=== PATIENT | female | born 1990 | race Caucasian/White ===

== ENCOUNTER 2018-07-20 10:51 | Emergency (ER) | payer OTHER ==
[2018-07-20] MEDS ORDERED: METHYLPREDNISOLONE INJ 125 MG/2 ML SDV IV ONE (11:41)
[2018-07-20] MEDS ORDERED: KETOROLAC TROMETHAMINE INJ/PF 30 MG/1 ML SDV IV ONE (11:41)
[2018-07-20] MEDS ORDERED: NORMAL SALINE 1000 ML 1,000 ML IV ONE (11:41)
[2018-07-20] MEDS ORDERED: NORMAL SALINE 1000 ML 1,000 ML IV PRN (11:41)
--- NOTE | 2018-07-20 11:42 | ER Document Report ---
ED Medical Screen (RME) - General Chief Complaint: Pain All Over Stated Complaint: FLU LIKE SYMPTOMS Time Seen by Provider: 07/20/18 11:39 Notes: 28 years old female with protein S deficiency, possible MS, presents today with general body aches and pain weakness feverish feeling wobbly legs, crying and generalized malaise. No fever chills. No sore throat earache. Not chest pain. No abdominal pain nausea vomiting. TRAVEL OUTSIDE OF THE [place] IN LAST 30 DAYS: No - Related Data Allergies/Adverse Reactions: No Known Allergies Allergy (Verified 07/20/18 10:58) Past Medical History Past Surgical History: Reports: Hx Appendectomy - Immunizations Hx Diphtheria, Pertussis, Tetanus Vaccination: No Physical Exam - Vital signs Vitals: Temp Pulse Resp BP Pulse Ox 98.6 F 87 16 102/58 L 98 07/20/18 11:01 07/20/18 11:01 07/20/18 11:01 07/20/18 11:01 07/20/18 11:01 Course - Vital Signs Vital signs: Temp Pulse Resp BP Pulse Ox 98.6 F 87 16 102/58 L 98 07/20/18 11:01 07/20/18 11:01 07/20/18 11:01 07/20/18 11:01 07/20/18 11:01
[2018-07-20 12:11] LABS: ABSOLUTE LYMPHOCYTES (AUTO) 0.3 10^3/uL (0.5-4.7); ABSOLUTE MONOCYTES (AUTO) 0.3 10^3/uL (0.1-1.4); ABSOLUTE NEUT (AUTO) 4.3 10^3/uL (1.7-8.2); BASOPHILS % (AUTO) 0.1 % (0-2); HEMATOCRIT 43.7 % (36.0-47.0); HEMOGLOBIN 15.4 g/dL (12.0-15.5); MEAN CORPUSCULAR HEMOGLOBIN 32.7 pg (27.0-33.4); MEAN CORPUSCULAR HGB CONC 35.2 g/dL (32.0-36.0); MEAN CORPUSCULAR VOLUME 93 fl (80-97); MONOCYTES % (AUTO) 6.3 % (3-13); PLATELET COUNT 220 10^3/uL (150-450); RED CELL DISTRIBUTION WIDTH 13.6 % (11.5-14.0); SEGMENTED NEUTROPHILS % (AUTO) 86.6 % (42-78); TOTAL CELLS COUNTED % (AUTO) 100 %
[2018-07-20 12:37] LABS: ALANINE AMINOTRANSFERASE 31 U/L (9-52); ALBUMIN 4.6 g/dL (3.5-5.0); ALKALINE PHOSPHATASE 45 U/L (38-126); ANION GAP 9 (5-19); ASPARTATE AMINO TRANSFERASE 26 U/L (14-36); BILIRUBIN,DIRECT 0.2 mg/dL (0.0-0.4); BILIRUBIN,TOTAL 0.7 mg/dL (0.2-1.3); BLOOD UREA NITROGEN 12 mg/dL (7-20); C-REACTIVE PROTEIN 53.7 mg/L (<10.0); CALCIUM 9.9 mg/dL (8.4-10.2); CARBON DIOXIDE 29 mmol/L (22-30); CHLORIDE 104 mmol/L (98-107); GLUCOSE 108 mg/dL (75-110); POTASSIUM 4.2 mmol/L (3.6-5.0); SODIUM 141.5 mmol/L (137-145); TOTAL PROTEIN 7.5 g/dL (6.3-8.2)
[2018-07-20 12:58] LABS: ERYTHROCYTE SEDIMENTATION RATE 8 mm/hr (0-20)
[2018-07-20] MEDS ORDERED: LORAZEPAM INJ 2 MG/1 ML VIAL IV ONE (13:47)
--- NOTE | 2018-07-20 14:20 | ER Document Report ---
ED General - General Chief Complaint: Pain All Over Stated Complaint: FLU LIKE SYMPTOMS Time Seen by Provider: 07/20/18 11:39 Notes: Patient is a 28-year-old female that presents to the emergency department for chief complaint of body aches all over. Patient states she is currently being worked up for possible MS, and thinks she may be having a flare. She does not have a definitive diagnosis of MS. She states over the last week she has been having body aches, in her arms and legs, over the course of the week it seemed to get worse particularly this morning, she has been taking Tylenol Motrin without much relief of her pain except when she takes them together. She also states she has been on prolonged menstrual cycle over the last 2 weeks. She had some chills but denies having any fevers. Had nausea but no vomiting. Denies having any chest pain, shortness of breath or cough. She currently rates her pain as a 6 out of 10, describes as a constant aching sensation in her arms and legs. She states she her legs feel like "rubber", but has been able to walk without any difficulty. Past Medical History: Protein S deficiency, anxiety, depression Past Surgical History: Appendectomy Social History: Admits to rare alcohol use, denies tobacco or illicit drug use Family History: Reviewed and noncontributory for presenting illness Allergies: Reviewed, see documented allergy list. REVIEW OF SYSTEMS: Unless otherwise stated in this report the patient's positive and negative responses for review of systems for constitutional, eyes, ENT, cardiovascular, respiratory, gastrointestinal, neurological, genitourinary, musculoskeletal, and integumentary systems and related systems to the presenting problem are either as stated in the HPI or were not pertinent or were negative for the symptoms and/or complaints related to the presenting medical problem. PHYSICAL EXAMINATION: Vital signs reviewed, nursing noted reviewed. GENERAL: Well-appearing, well-nourished and appears anxious HEAD: Atraumatic, normocephalic. EYES: Eyes appear normal, extraocular movements intact, sclera anicteric, conjunctiva are normal. PERRLA, no ophthalmoplegia, no pain with extraocular eye movements. ENT: nares patent, oropharynx clear without exudates. Moist mucous membranes. NECK: Normal range of motion, supple without lymphadenopathy LUNGS: Breath sounds clear to auscultation bilaterally and equal. No wheezes rales or rhonchi. HEART: Regular rate and rhythm without murmurs ABDOMEN: Soft, nontender, normoactive bowel sounds. No rebound, guarding, or rigidity. No masses appreciated. EXTREMITIES: Nontender, good range of motion, no pitting or edema. NEUROLOGICAL: No focal neurological deficits. Moves all extremities spontaneously Motor and sensory grossly intact on exam. Reflexes are +2/4 in the bilateral patellar and Achilles tendon reflexes, no clonus. PSYCH: Anxious mood, but appropriate and cooperative SKIN: Warm, Dry, normal turgor, no rashes or lesions noted on exposed skin TRAVEL OUTSIDE OF THE [place] IN LAST 30 DAYS: No - Related Data Allergies/Adverse Reactions: No Known Allergies Allergy (Verified 07/20/18 10:58) Past Medical History - Social History Smoking Status: Never Smoker Frequency of alcohol use: Occasional Drug Abuse: None Family History: Reviewed & Not Pertinent Patient has suicidal ideation: No Patient has homicidal ideation: No Renal/ Medical History: Denies: Hx Peritoneal Dialysis Past Surgical History: Reports: Hx Appendectomy - Immunizations Hx Diphtheria, Pertussis, Tetanus Vaccination: No Physical Exam - Vital signs Vitals: Temp Pulse Resp BP Pulse Ox 98.6 F 87 16 102/58 L 98 07/20/18 11:01 07/20/18 11:01 07/20/18 11:01 07/20/18 11:01 07/20/18 11:01 Course - Re-evaluation Re-evalutation: Patient seen and examined vital signs reviewed. Laboratory data and imaging were ordered as appropriate for the patient's presenting symptoms and complaint, with consideration of any critical or life threatening conditions that may be associated with their obtained history and exam as noted above. Patient was treated with IV fluids, Solu-Medrol, and Toradol, the pain seemed to be improving, but she was still nervous, therefore she was ordered 0.5 mg of IV Ativan. Results were reviewed when available and demonstrated elevated CRP, but normal white blood cell count, and ESR, blood work otherwise unremarkable, initially MRI was ordered by the triage provider, I discussed with the patient that this is not likely needed at this time, given that she has an appointment in 1 week, with [facility]'s neurology team to evaluate her further for possible MS, and that they will likely repeat an MRI at that time, the patient is agreeable to that plan. Influenza testing was negative The patient was re-evaluated and was improved, stating that she was feeling much better, and was ready to be discharged. Evaluation was most consistent with myalgias, possible viral syndrome, I advised her to keep her appointment with [facility], advised her to take her scheduled Klonopin twice daily, and she is given a prescription for naproxen, advised not to take any other NSAIDs. Results were discussed with the patient at this point, after careful consideration I feel that that patient can be discharged from the emergency department, the patient was educated treatments and reasons to return to the emergency department based on their presumed diagnosis as noted above, they were advised to followup with a primary care physician in 2-3 days. Patient was agreeable to plan of care. *Note is created using voice recognition software and may contain spelling, syntax or grammatical errors. Laboratory 07/20/18 07/20/18 11:58 11:58 WBC 5.0 RBC 4.70 Hgb 15.4 Hct 43.7 MCV 93 MCH 32.7 MCHC 35.2 RDW 13.6 Plt Count 220 Seg Neutrophils % 86.6 H Lymphocytes % 7.0 L Monocytes % 6.3 Eosinophils % 0.0 Basophils % 0.1 Absolute Neutrophils 4.3 Absolute Lymphocytes 0.3 L Absolute Monocytes 0.3 Absolute Eosinophils 0.0 Absolute Basophils 0.0 ESR 8 Sodium 141.5 Potassium 4.2 Chloride 104 Carbon Dioxide 29 Anion Gap 9 BUN 12 Creatinine 0.52 Est GFR ( Amer) > 60 Est GFR (Non-Af Amer) > 60 Glucose 108 Calcium 9.9 Total Bilirubin 0.7 Direct Bilirubin 0.2 Neonat Total Bilirubin Not Reportable Neonat Direct Bilirubin Not Reportable Neonat Indirect Bili Not Reportable AST 26 ALT 31 Alkaline Phosphatase 45 C-Reactive Protein 53.7 H Total Protein 7.5 Albumin 4.6 - Vital Signs Vital signs: Temp Pulse Resp BP Pulse Ox 98.6 F 87 16 102/58 L 98 07/20/18 11:01 07/20/18 11:01 07/20/18 11:01 07/20/18 11:01 07/20/18 11:01 - Laboratory Result Diagrams: 07/20/18 11:58 07/20/18 11:58 Laboratory results interpreted by me: 07/20/18 07/20/18 11:58 11:58 Seg Neutrophils % 86.6 H Lymphocytes % 7.0 L Absolute Lymphocytes 0.3 L C-Reactive Protein 53.7 H Discharge - Discharge Clinical Impression: Myalgia, Anxiety Condition: Stable Disposition: HOME, SELF-CARE Instructions: Myalagia (Muscle Pain) ([facility]) Additional Instructions: Take your prescribe klonopin 1mg twice daily for 3 days, then reduce to 0.5mg twice daily for 3 days, then if you feel improved can stop. Please keep your appointment with [facility] for your neurology evaluation. Please return to the emergency department if you have any worsening, or concern of your symptoms. Please return to the emergency department if you develop chest pain, difficulty breathing, severe abdominal pain, or ongoing vomiting. Please follow-up with your primary care physician in 2-3 days and any other recommended physicians. If prescribed, take all medications as directed. If you have any questions or concerns do not hesitate to return the emergency department for evaluation. Prescriptions: Naproxen [Naprosyn] 500 mg PO Q12H #30 tablet Referrals: GABBY AMBROSIO MD [Primary Care Provider] - Follow up in 3-5 days
[2018-07-20 14:26] LABS: A TYPE INFLUENZA AG NEGATIVE (NEGATIVE); B INFLUENZA AG NEGATIVE (NEGATIVE)
[2018-07-20 15:28] VITALS: BP 100/70
== END 2018-07-20 15:19 | disposition home or self-care (01) ==
LOC: ER 10:51
DX: M79.10 Myalgia, unspecified site (principal); F41.9 Anxiety disorder, unspecified; M79.604 Pain in right leg; M79.605 Pain in left leg; M79.601 Pain in right arm; M79.602 Pain in left arm; R11.0 Nausea
CPT/HCPCS: 99283; 96361; 96374; 96375; 36415; 85025; 85652; 86140; 80053; 87804; J1885; J2060; J7030

== ENCOUNTER 2018-08-28 20:55 | Emergency (ER) | payer OTHER ==
[2018-08-28 21:15] VITALS: BP 114/71
[2018-08-28 21:42] LABS: APPEARANCE,URINE CLEAR; BILIRUBIN,URINE NEGATIVE (NEGATIVE); COLOR,URINE YELLOW; GLUCOSE, URINE NEGATIVE (NEGATIVE); KETONES,URINE NEGATIVE (NEGATIVE); LEUKOCYTE ESTERASE,URINE NEGATIVE (NEGATIVE); NITRITE,URINE NEGATIVE (NEGATIVE); PROTEIN,URINE NEGATIVE (NEGATIVE); URINE SPECIFIC GRAVITY 1.017; UROBILINOGEN,URINE NEGATIVE mg/dL (<2.0)
[2018-08-28 23:02] LABS: RBCS (WET MOUNT) NO RBCS SEEN; T.VAGINALIS (WET MOUNT) NO TRICHOMONAS SEEN; WBCS (WET MOUNT) FEW WBCS SEEN; YEAST (WET MOUNT) NO YEAST SEEN
--- NOTE | 2018-08-28 23:39 | ER Document Report ---
ED General - General Chief Complaint: Urinary Problem Stated Complaint: URINARY PROBLEM Time Seen by Provider: 08/28/18 21:25 Notes: Patient is a 28-year-old female that presents to the emergency department for chief complaint of vaginal itching, and irritation. Patient states she has been having some vaginal discharge, and noticed some white spots along her labia , and she had not had this before, and there was some itching associated. She did take Diflucan today, she recently was treated with antibiotics and a sinus infection and thought this may be what was occurring. She states she is not noticed any foul odors, but noticed increase in vaginal discharge. She denies having any blistering, or having any dysuria, hematuria, abdominal pain, fevers , chills, night sweats, nausea or vomiting. Past Medical History: Endometriosis Past Surgical History: Appendectomy Social History: Mitsue occasional alcohol use, denies tobacco or illicit drug use Family History: Reviewed and noncontributory for presenting illness Allergies: Reviewed, see documented allergy list. REVIEW OF SYSTEMS: Other than noted above, the 12 point review of systems was reviewed with the patient and were negative, all pertinent findings are included in the HPI. PHYSICAL EXAMINATION: Vital signs reviewed, nursing noted reviewed. GENERAL: Well-appearing, well-nourished and in no acute distress. HEAD: Atraumatic, normocephalic. EYES: Eyes appear normal, extraocular movements intact, sclera anicteric, conjunctiva are normal. ENT: nares patent, oropharynx clear without exudates. Moist mucous membranes. NECK: Normal range of motion, supple without lymphadenopathy LUNGS: Breath sounds clear to auscultation bilaterally and equal. No wheezes rales or rhonchi. HEART: Regular rate and rhythm without murmurs ABDOMEN: Soft, nontender, normoactive bowel sounds. No rebound, guarding, or rigidity. No masses appreciated. Pelvic Exam: With a commercial litigation associate present the exam was explained to the patient and patient agreed to proceed with exam. On exam, no external lesions or abnormalities noted. Internal speculum exam demonstrated normal appearing cervix without purulent discharge. Swabs obtained. Bimanual exam was negative for adnexal tenderness, or palpable masses. There was noted to be small white lesions noted on the labia, measuring 1-2 mm in diameter, there are not tender to palpate, no fluctuance. EXTREMITIES: Nontender, good range of motion, no pitting or edema. NEUROLOGICAL: No focal neurological deficits. Moves all extremities spontaneously Motor and sensory grossly intact on exam. PSYCH: Normal mood, normal affect. SKIN: Warm, Dry, normal turgor, no rashes or lesions noted on exposed skin TRAVEL OUTSIDE OF THE [place] IN LAST 30 DAYS: No - Related Data Allergies/Adverse Reactions: No Known Allergies Allergy (Verified 07/20/18 10:58) Past Medical History - Social History Smoking Status: Unknown if Ever Smoked Family History: Reviewed & Not Pertinent Patient has suicidal ideation: No Patient has homicidal ideation: No Renal/ Medical History: Denies: Hx Peritoneal Dialysis Past Surgical History: Reports: Hx Appendectomy - Immunizations Hx Diphtheria, Pertussis, Tetanus Vaccination: No Physical Exam - Vital signs Vitals: Temp Pulse Resp BP Pulse Ox 98.1 F 81 14 114/71 100 08/28/18 21:11 08/28/18 21:11 08/28/18 21:11 08/28/18 21:11 08/28/18 21:11 Course - Vital Signs Vital signs: Temp Pulse Resp BP Pulse Ox 98.1 F 81 14 114/71 100 08/28/18 21:11 08/28/18 21:11 08/28/18 21:11 08/28/18 21:11 08/28/18 21:11 Discharge - Discharge Clinical Impression: Bacterial vaginosis Condition: Stable Disposition: HOME, SELF-CARE Instructions: Vaginosis, Bacterial ([facility]) Prescriptions: Clindamycin Phosphate [Clindamax Cream] 1 applic VG QHS 5 Days #1 bottle Referrals: GABBY AMBROSIO MD [Primary Care Provider] - Follow up in 3-5 days
[2018-08-29 00:19] LABS: CHLAM PCR NOT DETECTED (NOT DETECT); GON PCR NOT DETECTED (NOT DETECT)
== END 2018-08-28 23:53 | disposition home or self-care (01) ==
LOC: ER 20:55
DX: N76.0 Acute vaginitis (principal); B96.89 Other specified bacterial agents as the cause of diseases classified elsewhere; R39.198 Other difficulties with micturition
CPT/HCPCS: 81001; 81025; 87210; 87491; 87591; 99283

== ENCOUNTER 2018-09-26 00:53 | Emergency (ER) | payer OTHER ==
[2018-09-26] MEDS ORDERED: DEXAMETHASONE SOD PHOS INJ 10 MG/1 ML VIAL IM ONE (01:37)
[2018-09-26] MEDS ORDERED: KETOROLAC TROMETHAMINE 60 MG/2 ML SDV IM ONE (01:40)
[2018-09-26] MEDS ORDERED: LIDOCAINE 1% INJ-PF (10 MG/ML) 30 ML SDV INJ ONE (01:40)
[2018-09-26] MEDS ORDERED: CEFTRIAXONE INJ 1000 MG VIAL IM ONE (01:40)
[2018-09-26] MEDS ORDERED: HYDROCODONE/ACETAMINOPHEN 5-325 MG (6 TAB/ER DISP) PO PRN (01:47)
--- NOTE | 2018-09-26 01:48 | ER Document Report ---
HPI - HPI Time Seen by Provider: 09/26/18 01:15 Pain Level: 2 Notes: Patient is a 28-year-old female who presents with chief complaint of right ear pain. Patient reports the pain just started several hours prior to arrival. Patient reports that she was placed on Zithromax and prednisone today for an upcoming sinus surgery. Patient reports that typically when she gets a bad ear infection she needs Decadron, Rocephin and Toradol. She reports that her ENT is located in [place]. - EENT EENT: REPORTS: Ear Pain - rt ear pain - REPRODUCTIVE Reproductive: REPORTS: : Past Medical History - General Information source: Patient - Social History Smoking Status: Never Smoker Chew tobacco use (# tins/day): No Frequency of alcohol use: Occasional Drug Abuse: None Family History: Reviewed & Not Pertinent Patient has suicidal ideation: No Patient has homicidal ideation: No - Medical History Medical History: Negative Renal/ Medical History: Denies: Hx Peritoneal Dialysis Past Surgical History: Reports: Hx Appendectomy - Immunizations Hx Diphtheria, Pertussis, Tetanus Vaccination: No Vertical Provider Document - CONSTITUTIONAL Notes: PHYSICAL EXAMINATION: GENERAL: Well-appearing, well-nourished and in no acute distress. HEAD: Atraumatic, normocephalic. EYES: Pupils equal round extraocular movements intact, conjunctiva are normal. ENT: Nares patent, right TM bulging and erythematous. Left TM appears normal. NECK: Normal range of motion LUNGS: No respiratory distress Musculoskeletal: Normal range of motion NEUROLOGICAL: Normal speech, normal gait. PSYCH: Normal mood, normal affect. SKIN: Warm, Dry, normal turgor, no rashes or lesions noted. - INFECTION CONTROL TRAVEL OUTSIDE OF THE [place] IN LAST 30 DAYS: No Course - Re-evaluation Re-evalutation: Patient's examination is consistent with acute otitis media. Patient is already taking Zithromax and just completed Levaquin and Augmentin. Patient reports to me that she usually requires IM Rocephin when she gets a bad ear infection. Patient is followed by ENT and is pending surgery in few days. I will give patient dose of IM Rocephin per her request. Patient will be discharged home in stable condition. Close follow-up with ENT. - Vital Signs Vital signs: Temp Pulse Resp BP Pulse Ox 98 F 86 16 106/65 98 09/26/18 01:02 09/26/18 01:02 09/26/18 01:02 09/26/18 01:02 09/26/18 01:02 Discharge - Discharge Clinical Impression: Otitis media Qualifiers: Otitis media type: unspecified Chronicity: acute Qualified Code(s): H66.90 - Otitis media, unspecified, unspecified ear Condition: Stable Disposition: HOME, SELF-CARE Additional Instructions: OTITIS MEDIA: You have a middle ear infection (otitis media). This is usually a complication of a cold or sore throat. The middle ear cavity becomes filled with infection. Pressure and stretching of the ear drum cause pain. Antibiotics are required. A 10 day course is usually prescribed. A decongestant may be recommended if you have a "runny nose." You may need anesthetic drops or other pain medication. A follow-up exam may be recommended to make sure the infection has completely cleared. If the ear begins to drain, it means the ear drum has ruptured. This will usually heal spontaneously. However, it means you should keep the ear dry until re-examined by a doctor. Call the physician or return for examination at once if there is severe headache, stiff neck, confusion, increasing fever, or dizziness. You should improve significantly within two days. If you're not better, call the doctor. CEPHALOSPORINS: An antibiotic of the cephalosporin class has been given. This type of antibiotic covers a wide variety of infections, including those of the skin, lungs, middle ear, and urinary tract. This antibiotic is somewhat similar to the penicillin family. In rare cases, a person who is allergic to penicillin will also be allergic to this medication. If you have had a severe allergic reaction to penicillin, and have not taken this antibiotic since that time, notify your doctor. Antibiotics which cover many germs ("broad spectrum" antibiotics) are more likely to cause diarrhea or "yeast" infections. Women prone to vaginal yeast problems may suffer an attack after taking this antibiotic. In infants, oral thrush (white spots "stuck" on the cheek) or yeast diaper rash may result. See your doctor if these problems occur. Call the doctor at once if you develop hives, itching, shortness of breath, or lightheadedness. USE OF ACETAMINOPHEN (Tylenol): Acetaminophen may be taken for pain relief or fever control. It's much safer than aspirin, offering a wider range of "safe" dosages. It is safe during . Some brand names are Tylenol, Panadol, Datril, Anacin 3, Tempra, and Liquiprin. Acetaminophen can be repeated every four hours. The fo FOLLOW-UP CARE: If you have been referred to a physician for follow-up care, call the ysicians office for an appointment as you were instructed or within the next two days. If you experience worsening or a significant change in your symptoms, notify the physician immediately or return to the Emergency Department at any time for re-evaluation. You were given a dose of IM Rocephin in the emergency department today for your acute otitis media. Please start taking the Zithromax that was prescribed by your ENT provider. Please follow-up with him at your earliest convenience. Referrals: GABBY AMBROSIO MD [Primary Care Provider] - Follow up as needed
[2018-09-26 02:26] VITALS: BP 103/65
== END 2018-09-26 02:27 | disposition home or self-care (01) ==
LOC: ER 00:53
DX: O99.89 Other specified diseases and conditions complicating pregnancy, childbirth and the puerperium (principal); H66.91 Otitis media, unspecified, right ear; Z3A.00 Weeks of gestation of pregnancy not specified
CPT/HCPCS: 99283; 96372; J1885; J3490; J0696; J1100

== ENCOUNTER 2018-11-08 17:28 | Emergency (ER) | payer OTHER ==
[2018-11-08] MEDS ORDERED: ONDANSETRON HCL INJ/PF 4 MG/2 ML SDV IV ONE (19:10)
[2018-11-08] MEDS ORDERED: NORMAL SALINE 1000 ML 1,000 ML IV ONE (19:10)
[2018-11-08] MEDS ORDERED: FAMOTIDINE INJ/PF 20 MG/2 ML SDV IV ONE (19:11)
[2018-11-08] MEDS ORDERED: KETOROLAC TROMETHAMINE INJ/PF 30 MG/1 ML SDV IV ONE (19:11)
--- NOTE | 2018-11-08 19:12 | ER Document Report ---
ED Medical Screen (RME) - General Chief Complaint: Nausea/Vomiting Stated Complaint: NAUSEA,ABDOMINAL PAIN Time Seen by Provider: 11/08/18 18:55 Primary Care Provider: GABBY AMBROSIO MD [Primary Care Provider] - Follow up as needed Notes: 28-year-old female patient emergency department chief complaint of nausea, vomiting, generally not feeling well. A little bit of diarrhea. Epigastric abdominal pain. Achy all over. Children had the same thing recently. Patient states that she feels like she needs some IV fluids. Patient also has MS and occasionally when she gets sick she feels really bad all over and Toradol sometimes helps. Denies any blood in her stool. No blood in the vomit. I have greeted and performed a rapid initial assessment of this patient. A comprehensive ED assessment and evaluation of the patient, analysis of test results and completion of the medical decision making process will be conducted by additional ED providers. TRAVEL OUTSIDE OF THE [place] IN LAST 30 DAYS: No - Related Data Allergies/Adverse Reactions: No Known Allergies Allergy (Verified 07/20/18 10:58) Past Medical History Renal/ Medical History: Denies: Hx Peritoneal Dialysis Past Surgical History: Reports: Hx Appendectomy - Immunizations Hx Diphtheria, Pertussis, Tetanus Vaccination: No Review of Systems - Review of Systems Notes: Review of systems positive for the following: Nausea, vomiting, abdominal pain Physical Exam - Vital signs Vitals: Temp Pulse Resp BP Pulse Ox 99.5 F 103 H 16 114/69 97 11/08/18 17:42 11/08/18 17:42 11/08/18 17:42 11/08/18 17:42 11/08/18 17:42 - Abdominal Inspection: Normal Distension: No distension Bowel sounds: Normal Tenderness: Tender - Epigastric area is tender to palpation Course - Vital Signs Vital signs: Temp Pulse Resp BP Pulse Ox 99.5 F 103 H 16 114/69 97 11/08/18 17:42 11/08/18 17:42 11/08/18 17:42 11/08/18 17:42 11/08/18 17:42 Doctor's Discharge - Discharge Referrals: GABBY AMBROSIO MD [Primary Care Provider] - Follow up as needed
[2018-11-08 19:54] LABS: APPEARANCE,URINE CLOUDY; BILIRUBIN,URINE NEGATIVE (NEGATIVE); COLOR,URINE AMBER; GLUCOSE, URINE NEGATIVE (NEGATIVE); KETONES,URINE NEGATIVE (NEGATIVE); LEUKOCYTE ESTERASE,URINE LARGE (NEGATIVE); NITRITE,URINE NEGATIVE (NEGATIVE); PROTEIN,URINE 30 mg/dL (NEGATIVE)
[2018-11-08 19:58] LABS: ABSOLUTE LYMPHOCYTES (AUTO) 0.7 10^3/uL (0.5-4.7); ABSOLUTE MONOCYTES (AUTO) 0.3 10^3/uL (0.1-1.4); ABSOLUTE NEUT (AUTO) 3.3 10^3/uL (1.7-8.2); BASOPHILS % (AUTO) 0.1 % (0-2); EOSINOPHILS % (AUTO) 0.7 % (0-6); HEMATOCRIT 43.5 % (36.0-47.0); HEMOGLOBIN 15.4 g/dL (12.0-15.5); LYMPHOCYTES % (AUTO) 16.5 % (13-45); MEAN CORPUSCULAR HEMOGLOBIN 32.4 pg (27.0-33.4); MEAN CORPUSCULAR HGB CONC 35.3 g/dL (32.0-36.0); MEAN CORPUSCULAR VOLUME 92 fl (80-97); MONOCYTES % (AUTO) 7.2 % (3-13); PLATELET COUNT 186 10^3/uL (150-450); RED BLOOD COUNT 4.74 10^6/uL (3.72-5.28); RED CELL DISTRIBUTION WIDTH 12.9 % (11.5-14.0); SEGMENTED NEUTROPHILS % (AUTO) 75.5 % (42-78); TOTAL CELLS COUNTED % (AUTO) 100 %; WHITE BLOOD COUNT 4.3 10^3/uL (4.0-10.5)
[2018-11-08 20:15] LABS: ALANINE AMINOTRANSFERASE 17 U/L (9-52); ALBUMIN 4.7 g/dL (3.5-5.0); ALKALINE PHOSPHATASE 44 U/L (38-126); ANION GAP 9 (5-19); ASPARTATE AMINO TRANSFERASE 18 U/L (14-36); BILIRUBIN,DIRECT 0.2 mg/dL (0.0-0.4); BILIRUBIN,TOTAL 0.8 mg/dL (0.2-1.3); BLOOD UREA NITROGEN 11 mg/dL (7-20); CARBON DIOXIDE 27 mmol/L (22-30); CHLORIDE 105 mmol/L (98-107); GLUCOSE 94 mg/dL (75-110); LIPASE 141.8 U/L (23-300); POTASSIUM 4.1 mmol/L (3.6-5.0); SODIUM 141.3 mmol/L (137-145); TOTAL PROTEIN 7.2 g/dL (6.3-8.2)
--- NOTE | 2018-11-08 21:43 | ER Document Report ---
ED General - General Chief Complaint: Nausea/Vomiting Stated Complaint: NAUSEA,ABDOMINAL PAIN Time Seen by Provider: 11/08/18 18:55 Primary Care Provider: GABBY AMBROSIO MD [Primary Care Provider] - Follow up as needed Notes: Patient is a 28-year-old female patient emergency department with a chief complaint of nausea, vomiting, and "not feeling well." She does admit to some epigastric pain and diarrhea. She states her children had the same symptoms. She was given fluids, toradol, and antinausea medications in triage, and she states she feels better. She has a past medical history of MS. She denies any hematochezia and hematemesis. She denies any fever. TRAVEL OUTSIDE OF THE [place] IN LAST 30 DAYS: No - Related Data Allergies/Adverse Reactions: No Known Allergies Allergy (Verified 07/20/18 10:58) Past Medical History - Social History Smoking Status: Never Smoker Family History: Reviewed & Not Pertinent Patient has suicidal ideation: No Patient has homicidal ideation: No Renal/ Medical History: Denies: Hx Peritoneal Dialysis Past Surgical History: Reports: Hx Appendectomy - Immunizations Hx Diphtheria, Pertussis, Tetanus Vaccination: No Review of Systems - Review of Systems Notes: REVIEW OF SYSTEMS: CONSTITUTIONAL : Denies recent illness. Denies recent unintentional weight loss. Denies fever, chills, or sweats. EENT: Denies eye, ear, throat, or mouth pain, discharge, or symptoms. Denies nasal or sinus congestion. CARDIOVASCULAR: Denies chest pain. RESPIRATORY: Denies shortness of breath, cough, congestion, difficulty breathing, or wheezing. GASTROINTESTINAL: See HPI. GENITOURINARY: Denies difficulty urinating, burning, blood in urine, urgency or frequency. MUSCULOSKELETAL: Denies neck and back pain. Denies joint pain or swelling. SKIN: Denies rash, itchiness, or lesions HEMATOLOGIC : Denies easy bruising or bleeding. LYMPHATIC: Denies swollen, painful, enlarged glands. NEUROLOGICAL: Denies no numbness or tingling denies weakness. Denies headache. Denies altered mental status. Denies alteration in speech. PSYCHIATRIC: Denies stress, anxiety, alteration in sleep patterns, or depres chad. All other systems reviewed and negative. Physical Exam - Vital signs Vitals: Temp Pulse Resp BP Pulse Ox 99.5 F 103 H 16 114/69 97 11/08/18 17:42 11/08/18 17:42 11/08/18 17:42 11/08/18 17:42 11/08/18 17:42 - Notes Notes: PHYSICAL EXAMINATION: GENERAL: Appears well, healthy, well-nourished, no acute distress. HEAD: Normocephalic, atraumatic. EYES: PERRL, conjunctiva normal, all extraocular movements intact, sclera nonicteric ENT: Moist mucous membranes. NECK: Supple, no noticeable swelling, redness, rash. Normal range of motion. LUNGS: Equal breath sounds bilaterally and clear to auscultation. No wheezes rales or rhonchi. CARDIOVASCULAR: S1-S2, regular rate, regular rhythm. Radial pulses 2+, normal. ABDOMEN: Normoactive bowel sounds. Soft, generalized mild tenderness, no guarding, no rebound tenderness, and no masses palpated. EXTREMITIES: Normal strength and range of motion, no pitting or edema. No cyanosis. NEUROLOGICAL: Moves all extremities upon command. Strength 5/5 in all extremities. PSYCH: Normal mood, normal affect. SKIN: Warm, dry. No rash, lesions, ulcerations noted. Normal skin turgor. Course - Re-evaluation Re-evalutation: 11/08/18 21:35 Labs have been reviewed. CBC and Chemistries are unremarkable. Her urine shows a large amount of leukocytes and some blood, most consistent with a urinary tract infection. She states she feels better after receiving toradol and fluids. Patient is well in appearance, tolerating oral intake without difficulty. No focal abdominal tenderness to suggest acute appendicitis, biliary pathology, acute pancreatitis, tubo-ovarian abscesses, or pelvic inflammatory disease. They will be discharged with return precautions and follow-up recommendations. She will be discharged home on keflex to treat her UTI. Verbal discharge instructions were given to the patient. They verbalized understanding. She is stable for discharge. - Vital Signs Vital signs: Temp Pulse Resp BP Pulse Ox 98.2 F 80 16 115/72 100 11/08/18 21:50 11/08/18 21:50 11/08/18 21:50 11/08/18 21:50 11/08/18 21:50 - Laboratory Result Diagrams: 11/08/18 19:32 11/08/18 19:32 Laboratory results interpreted by me: 11/08/18 19:32 Urine Protein 30 H Urine Blood MODERATE H Urine Urobilinogen 4.0 H Ur Leukocyte Esterase LARGE H Discharge - Discharge Clinical Impression: Urinary tract infection Qualifiers: Urinary tract infection type: acute cystitis Hematuria presence: without hematuria Qualified Code(s): N30.00 - Acute cystitis without hematuria Condition: Stable Disposition: HOME, SELF-CARE Additional Instructions: Your urine shows findings consistent with a urinary tract infection. Please take all the antibiotics as directed even if your symptoms have improved. Please follow-up with your primary care physician as needed. Return to emergency room if you develop fever >101F, persistent vomiting, become lethargic, have severe pain in your sides, or any other symptoms that are concerning to you. Prescriptions: Cephalexin [Keflex] 500 mg PO BID #14 capsule Ondansetron HCl [Zofran 4 mg Tablet] 1 - 2 tab PO Q4H PRN #14 tablet PRN Reason: Referrals: GABBY AMBROSIO MD [Primary Care Provider] - Follow up as needed
[2018-11-08] MEDS ORDERED: ONDANSETRON ODT 4 MG TAB (6 TAB/ER DISP) PO PRN (21:44)
[2018-11-08] MEDS ORDERED: CEPHALEXIN 500 MG CAPSULE PO ONE (21:44)
[2018-11-08 21:54] VITALS: BP 115/72
== END 2018-11-08 21:52 | disposition home or self-care (01) ==
LOC: ER 17:28
DX: N30.00 Acute cystitis without hematuria (principal); R11.2 Nausea with vomiting, unspecified; R10.13 Epigastric pain; R10.817 Generalized abdominal tenderness; R19.7 Diarrhea, unspecified; Z90.49 Acquired absence of other specified parts of digestive tract
CPT/HCPCS: 99284; 96361; 96374; 96375; 36415; 83690; 85025; 81025; 80053; 81001; J1885; J2405; J7030; S0028

== ENCOUNTER → 2019-01-05 | Outpatient (CLI) | payer OTHER ==
--- NOTE | 2019-01-05 11:15 | RADIOLOGY REPORT (SQ) ---
EXAM DESCRIPTION: CT SINUSES FOR ENT COMPLETED DATE/TIME: 01/05/2019 11:02 am REASON FOR STUDY: CHRONIC RECURRENT SINUSITIS (J32.9) J32.9 CHRONIC SINUSITIS, UNSPECIFIED COMPARISON: None. TECHNIQUE: Noncontrast scanning through the paranasal sinuses using bone algorithm. Reconstructed MPR images reviewed. All images stored on PACS. Images acquired for image guided surgery. All CT scanners at this facility use dose modulation, iterative reconstruction, and/or weight based d osing when appropriate to reduce radiation dose to as low as reasonably achievable (ALARA). [facility]: Dose Right [facility]: CareDose [facility]: Dose Right [facility]: Teradose 4D [facility]: Synthace RADIATION DOSE: mGy. FINDINGS: The paranasal sinuses are well developed. There is fluid in the ethmoid, left sphenoid an d left maxillary sinuses. Both infundibula and nasofrontal recesses are opacified. Nasal septum is near midline. IMPRESSION: Acute on chronic vinson sinusitis. TECHNICAL DOCUMENTATION: JOB ID: [id number] Quality ID # [id number]: Final reports with documentation of one or more dose reduction techniques (e.g., Au tomated exposure control, adjustment of the mA and/or kV according to patient size, use of iterative reconstruction technique) 2010 [employer]- All Rights Reserved Reading location - IP/workstation name: [email or web address]
== END ==
LOC: RAD 10:34
PROVIDERS: ATTEND Otolaryngology
DX: J01.40 Acute pansinusitis, unspecified (principal); J32.4 Chronic pansinusitis
CPT/HCPCS: 70486

== ENCOUNTER → 2019-02-09 | Outpatient (CLI) | payer OTHER ==
--- NOTE | 2019-02-09 16:50 | RADIOLOGY REPORT (SQ) ---
EXAM DESCRIPTION: CHEST 2 VIEWS COMPLETED DATE/TIME: 02/09/2019 4:15 pm REASON FOR STUDY: COUGH COMPARISON: None. EXAM PARAMETERS: NUMBER OF VIEWS: two views TECHNIQUE: Digital Frontal and Lateral radiographic views of the chest acquired. RADIATION DOSE: NA LIMITATIONS: none FINDINGS: LUNGS AND PLEURA: No opacities, masses or pneumothorax. No pleural effusion. MEDIASTINUM AND HILAR STRUCTURES: No masses or contour abnormalities. HEART AND VASCULAR STRUCTURES: Heart normal size. No evidence for failure. BONES: No acute findings. HARDWARE: None in the chest. OTHER: No other significant finding. IMPRESSION: NO ACUTE RADIOGRAPHIC FINDING IN THE CHEST. TECHNICAL DOCUMENTATION: JOB ID: [id number] [employer]- All Rights Reserved Reading location - IP/workstation name: [email or web address]
== END ==
LOC: RAD 16:02
PROVIDERS: ATTEND Otolaryngology
DX: R05 Cough (principal)
CPT/HCPCS: 71046

== ENCOUNTER 2019-03-06 09:26 | Day surgery (SDC) | payer OTHER ==
[2019-03-06] MEDS ORDERED: LACTATED RINGERS 1000 ML IV PRN (11:34)
[2019-03-06] MEDS ORDERED: LIDOCAINE 0.5% INJ-PF (5 MG/ML) 50 ML SDV SUBCUT PRN (11:34)
[2019-03-06] MEDS ORDERED: CEFAZOLIN 1 GM/D5W RTU 1 GM/50 ML RTUPB IV PRN (11:36)
[2019-03-06] MEDS ORDERED: SCOPOLAMINE HYDROBROMIDE 1.5 MG PATCH.TD72 TD ONE (11:45)
[2019-03-06] MEDS ORDERED: DEXAMETHASONE SOD PHOSPHATE INJ 4 MG/1 ML VIAL ONE (11:58)
[2019-03-06] MEDS ORDERED: NEOSTIGMINE METHYLSULFATE 10 MG/10 ML VIAL ONE (11:58)
[2019-03-06] MEDS ORDERED: ONDANSETRON HCL INJ/PF 4 MG/2 ML SDV ONE (11:58)
[2019-03-06] MEDS ORDERED: GLYCOPYRROLATE INJ 0.4 MG/2 ML VIAL ONE (11:59)
[2019-03-06] MEDS ORDERED: ROCURONIUM BROMIDE INJ 50 MG/5 ML VIAL IV ONE (11:59)
[2019-03-06] MEDS ORDERED: PROPOFOL INJ 200 MG/20 ML VIAL IV ONE (11:59)
[2019-03-06] MEDS ORDERED: MIDAZOLAM 2 MG/2 ML INJ ONE (12:00)
[2019-03-06] MEDS ORDERED: FENTANYL CITRATE INJ/PF 250 MCG/5 ML AMPULE ONE (12:00)
[2019-03-06] MEDS ORDERED: MINERAL OIL (STERILE) 10 ML VIAL ONE (12:05)
[2019-03-06] MEDS ORDERED: BUPIVACAINE HCL 0.5%-EPI 1:200000 INJ/PF 30 ML VIAL ONE (12:05)
[2019-03-06] MEDS ORDERED: BACITRACIN ZINC OINTMENT 15 GM ONE (12:05)
[2019-03-06] MEDS ORDERED: BUPIVACAINE HCL 0.5%/EPI 1:200000 INJ 1.8 ML CARTRIDGE ONE (12:06)
[2019-03-06] MEDS ORDERED: OXYMETAZOLINE HCL 0.05% NASAL SPRAY 15 ML BOTTLE ONE (12:06)
[2019-03-06] MEDS ORDERED: WATER FOR INJECTION,STERILE 10 ML SDV ONE (14:26)
[2019-03-06] MEDS ORDERED: HYDROMORPHONE HCL INJ/PF 2 MG/ML AMPULE ONE (15:29)
[2019-03-06] MEDS ORDERED: OXYCODONE-ACETAMINOPHEN 5-325 MG TABLET ONE (16:17)
--- NOTE | 2019-03-13 09:40 | SURGICARE OPERATIVE REPORT E ---
[facility] Operative Report NAME: RONALDO HDZ AGE: 28Y DATE OF SURGERY: 03/06/2019 ROOM: PREOPERATIVE DIAGNOSES: 1. Acute recurrent sinusitis. 2. Chronic rhinosinusitis. 3. Bilateral inferior turbinate hypertrophy. 4. Bilateral middle turbinate hypertrophy. 5. Chronic eustachian tube dysfunction. 6. Nasal septal deviation. 7. Chronic postnasal drainage. SURGEON: JULIO GARRETT D.O. ANESTHETIC: General endotracheal tube. ANESTHESIA STAFF: Brittany LANG ESTIMATED BLOOD LOSS: 50 mL. IV FLUIDS: 800 mL. COMPLICATIONS: None. DRAINS: None. COUNTS: Sponge count verified. Needle count verified. MATERIALS FORWARDED SPECIMEN: 1. Right bilateral anterior ethmoid tissue sent for rule out polyp disease. 2. Maxillary sinus tissue sent for rule out polyp disease. OPERATIONS PERFORMED: 1. Image guidance functional endoscopic sinus surgery as follows. 2. Bilateral maxillary antrostomies with tissue removal via bilateral transnasal rigid sinonasal surgical endoscopy. 3. Bilateral anterior ethmoidectomies with tissue removal via bilateral rigid transnasal sinonasal surgical endoscopy. 4. Bilateral frontal Sinuplasty via rigid transnasal sinonasal surgical endoscopy. 5. Bilateral sphenoid balloon Sinuplasty via bilateral transnasal rigid sinonasal surgical endoscopy. 6. Bilateral eustachian tube balloon plasty via bilateral transnasal rigid surgical endoscopy. [place] [address] for eustachian tube balloon plasty, CPT code 00468 for left, 79529 for right, and 40476 for bilateral rigid surgical endoscopy. 7. Bilateral inferior turbinate reduction using a submucous resection technique. 8. Bilateral middle turbinate reduction. FINDINGS: 1. There were polypoid/polyp changes around the area of the maxillary antrostomies and anterior ethmoid sinus distributions. 2. Extensive maxillary sinus mucous/thick and extensive mucoid material. 3. Bilateral middle turbinate hypertrophy with polypoid changes along the anterior face. 4. Bilateral inferior turbinate hypertrophy. 5. Nasoseptal deviation with small septal spur noted. 6. Bilateral Heather flattening with cuff hypertrophy. INDICATIONS: This is a 28-year-old white female patient who has been seen, evaluated, and followed in the [facility] office. The patient had been referred for and she complained of severe sinus symptoms over the years consisting of acute recurrent sinusitis episodes requiring antibiotics each year over the years. With these episodes, the patient reports multiple antibiotic utilized and extended antibiotic courses being required. The patient complains of severe sinus pain with episodes. She had been previously seen and followed in the [facility] and had been worked up and scheduled for sinus surgery, which she was not able to follow through with. The patient is also with history of protein S deficiency, but has not had any difficulty from this condition. The patient also suffers from chronic rhinosinusitis symptoms in addition to her acute recurrent sinusitis symptoms. The patient has essentially complained of having severe facial pain and pressure and sinus symptoms, which have become worse, especially over the past year. The patient also suffers from bilateral chronic eustachian tube dysfunction with associated symptoms over the years. The patient is also with allergic rhinitis symptoms as well over the years and has trialed a number of different allergy medications. The patient had undergone clinic evaluation, which included flexible endoscopy and extensive discussion and counseling. The patient had also undergone CT sinus imaging. After extensive discussion with the patient, recommendation and plan was to proceed with the previously discussed functional endoscopic sinus surgery, turbinate reductions, possible septoplasty, and the addition of bilateral eustachian tube balloon plasty was also included. The procedures and all of their risks and complications were all discussed in detail with the patient, which she voiced an understanding of, agreed with, and consent was obtained. PROCEDURE: The patient was taken to the main operating room and placed on the operating room table in the supine position. Appropriate monitors were placed. Using mask and IV access, general anesthesia was induced. The patient was then transorally intubated without difficulty. The patient was then positioned and prepped for nasal, sinus, and eustachian tube surgery. The patient underwent a nasal examination with injection of local anesthetic with epinephrine and 2 Afrin-soaked neuro patties were placed per nasal passage. The patient was then prepped and draped in a sterile fashion for surgery. The image guidance system was set up and attested appropriately before beginning the case. The [employer] image guidance system was used. The Afrin-soaked neuro patties were removed from each nasal passage. The nose was thoroughly suctioned. At this point, under bilateral rigid transnasal surgical endoscopy, the eustachian tube balloon plasty setup was introduced to each nasal passage and the balloon was passed into each eustachian tube opening and dilated to 12 atmospheres and held in position on each side for 2 minutes. Once complete, the balloon system was deflated and withdrawn. At this point, the functional endoscopic sinus surgery portion of the case and turbinate portion of the case proceeded as follows: Under bilateral transnasal rigid sinonasal surgical endoscopy throughout. A straight Karoline clamp was used to cross-clamp each middle turbinate to create controlled fractures. Next, surgical sinus instruments were used to debulk/reduce the anterior head of the middle turbinate, which contained polypoid-type tissue changes. Next, the uncinate process was mobilized on each side and surgical sinus instruments along with the microdebrider system at a setting of 3000 RPM were used to complete the maxillary antrostomies. Findings were as noted above. Tissue was removed and passed off for permanent pathology evaluation to rule out polyps. At this point, the anterior ethmoidectomies were completed without difficulty and tissue was passed off for permanent pathology evaluation to rule out polyps. At this point, the frontal sinus and sphenoid sinus balloon Sinuplasty systems were introduced under direct visualization. The image guidance balloons were passed up through the frontal sinus recesses into the frontal sinus on each side as well as through the sphenoid os into the sphenoid sinus on each side. The balloons were inflated to 12 atmospheres in all locations. Once complete, they were withdrawn. At this point, the turbinate bipolar wand was used to make 2 passes in each inferior turbinate. Next, the turbinate microdebrider system at a setting of 1500 RPM was used to perform submucous resection on each side. Once complete, the [place] elevator was used to outfracture each inferior turbinate. The nose was again fairly irrigated and suctioned. Adequate hemostasis was noted. At this point, one NasoPore absorbable pack was cut in half with a portion placed medial to each middle turbinate. At this point, there was one *------* with bacitracin ointment that was placed per nasal passage. These were secured at the anterior aspect as well as outside of the nose with silk suture. Once complete, the patient's nose was cleaned and dried and she was returned to the anesthesia staff and allowed to emerge from general anesthesia. The patient was extubated in the main operating room and was then transported to the postanesthesia recovery unit in stable condition. There were no complications. DICTATING PHYSICIAN: JULIO GARRETT D.O. [id number] PHY#: [id number] ID: [id number] JOB#: [id number] ACCT: [id number] cc:JULIO GARRETT D.O. >
== END 2019-03-06 17:20 | disposition home or self-care (01) ==
LOC: SC 09:26
PROVIDERS: ATTEND Otolaryngology
DX: J33.8 Other polyp of sinus (principal); J34.2 Deviated nasal septum; J34.3 Hypertrophy of nasal turbinates; J34.89 Other specified disorders of nose and nasal sinuses; J32.9 Chronic sinusitis, unspecified; R09.82 Postnasal drip; R51 Headache
CPT/HCPCS: 88305 ×2; 00160; 30140; 31256; 31254; 31298; 69799; J2250; J3490 ×6; J0690; J1100; J3010; J2710; J1170; J2405; J2704; 160

== ENCOUNTER → 2019-08-07 | Outpatient (CLI) | payer OTHER ==
[2019-08-08 06:36] LABS: IMMUNOGLOBULIN G 878 mg/dL (700-1600)
[2019-08-08 07:06] LABS: IMMUNOGLOBULIN A 172 mg/dL (87-352)
== END ==
LOC: OD 12:48
PROVIDERS: ATTEND Otolaryngology
DX: Z77.120 Contact with and (suspected) exposure to mold (toxic) (principal)
CPT/HCPCS: 36415; 82784; 82785; 86003

== ENCOUNTER → 2019-08-08 | Outpatient (CLI) | payer OTHER ==
--- NOTE | 2019-08-08 17:36 | RADIOLOGY REPORT (SQ) ---
EXAM DESCRIPTION: CT SINUSES FOR ENT COMPLETED DATE/TIME: 08/08/2019 2:06 pm REASON FOR STUDY: HX OF NASAL POLYP (Z87.09) Z87.09 PERSONAL HISTORY OF OTHER DISEASES OF THE RESPI RATORY COMPARISON: CT sinuses 01/05/2019 TECHNIQUE: Noncontrast scanning through the paranasal sinuses using bone algorithm. Reconstructed MPR images reviewed. All images stored on PACS. All CT scanners at this facility use dose modulation, iterative reconstruction, and/or weight based d osing when appropriate to reduce radiation dose to as low as reasonably achievable (ALARA). [facility]: Dose Right [facility]: CareDose [facility]: Dose Right [facility]: Teradose 4D [facility]: [email or web address] RADIATION DOSE: 45mGy. LIMITATIONS: None. FINDINGS: Right sinuses and drainage pathways: Post-surgical changes: Surgical widening of the right maxillary outlet and resection of the anterior ethmoid septa Frontal sinus: Normal. Frontoethmoidal Recess: Surgically widened Anterior Ethmoid Sinuses: Clear Posterior Ethmoid Sinuses: Clear Sphenoid Sinus: Clear Sphenoethmoidal Recess: Normal. Maxillary Sinus: Clear Ostiomeatal Complex: Surgically widened Left Sinuses and Drainage Pathways: Post-Surgical Changes: Surgical widening of the left maxillary outlet and resection of the anterior ethmoid and posterior ethmoid septa Frontal Sinus: Normal. Frontoethmoidal Recess: Surgically widened Anterior Ethmoid Sinuses: Clear Posterior Ethmoid Sinuses: Clear Sphenoid Sinus: Mucous membrane thickening Sphenoethmoidal Recess: Normal. Maxillary Sinus: Minimal mucous membrane thickening Ostiomeatal Complex: Surgically widened Right Olfactory Fossa: No polyps. Left Olfactory Fossa: No polyps. Middle Turbinate Florina Bullosa: No. Paradoxical Middle Turbinate: No. Atelectatic Uncinated Process: No. Frontal Dianne Cell Type I: No. Frontal Dianne Cell Type II: No. Interfrontal Sinus Septal Cell: Yes on coronal image 60 Supra-Orbital Ethmoid: Bilaterally Frontal Bullar Cell: None. Suprabullar Bullar Cell: None. Sphenoethmoidal ([place]) Cell: None. Pneumatization of the Anterior Clinoid Processes: No Hypoplastic Maxillary Sinus: None. Osteoneogenesis: None. Bone Dehiscence:None. Nasal Cavity: Normal. Nasal Septum: Midline Anatomic Variants: Right Vidian Canal: Normal. Left Vidian Canal: Normal. Mastoid air cells and middle ear cavities are clear IMPRESSION: Post surgical changes. No air-fluid levels worrisome for acute sinusitis. Mucous membr ane thickening in the left sphenoid and left maxillary sinuses TECHNICAL DOCUMENTATION: JOB ID: [id number] Quality ID # [id number]: Final reports with documentation of one or more dose reduction techniques (e.g., Au tomated exposure control, adjustment of the mA and/or kV according to patient size, use of iterative reconstruction technique) 2010 [employer]- All Rights Reserved Reading location - IP/workstation name: [email or web address]
== END ==
LOC: RAD 13:51
PROVIDERS: ATTEND Otolaryngology
DX: Z09 Encounter for follow-up examination after completed treatment for conditions other than malignant neoplasm (principal); Z87.09 Personal history of other diseases of the respiratory system
CPT/HCPCS: 70486

== ENCOUNTER 2019-09-07 17:35 | Emergency (ER) | payer OTHER ==
[2019-09-07] MEDS ORDERED: MAG HYDROX/AL HYDROX/SIMETH SUSP 30 ML UDCUP PO ONE (19:12)
[2019-09-07] MEDS ORDERED: METOCLOPRAMIDE HCL ORAL SOLN 10 MG/10 ML UDCUP PO ONE (19:12)
[2019-09-07] MEDS ORDERED: LIDOCAINE 2% VISCOUS SOLN 20 ML UDCUP PO ONE (19:12)
--- NOTE | 2019-09-07 19:19 | ER Document Report ---
ED Medical Screen (RME) - General Chief Complaint: Abdominal Pain Stated Complaint: ABDOMINAL PAIN Time Seen by Provider: 09/07/19 19:03 Primary Care Provider: JULIO GARRETT DO [Primary Care Provider] - Follow up as needed Notes: Patient is a 29-year-old female who presents the emergency department chief complaint of abdominal pain. Patient states that her pain is in her epigastric and right upper quadrant area. It started this morning. Patient has a history of an enlarged gallbladder in the past when she was . Patient has a history of MS. Denies any hematochezia or hematemesis. Patient states that she feels nauseous. Exam: Mid upper and right upper abdominal pain. I have greeted and performed a rapid initial assessment of this patient. A comprehensive ED assessment and evaluation of the patient, analysis of test results and completion of medical decision making process will be conducted by an additional ED providers. TRAVEL OUTSIDE OF THE [place] IN LAST 30 DAYS: No - Related Data Allergies/Adverse Reactions: No Known Allergies Allergy (Verified 03/03/19 09:32) Past Medical History - Social History Chew tobacco use (# tins/day): No Frequency of alcohol use: Occasional Drug Abuse: None - Past Medical History Cardiac Medical History: Denies: Hx Heart Attack, Hx Hypertension - LOW BP Pulmonary Medical History: Denies: Hx Asthma Neurological Medical History: Denies: Hx Cerebrovascular Accident, Hx Seizures Renal/ Medical History: Denies: Hx Peritoneal Dialysis GI Medical History: Denies: Hx Hepatitis, Hx Hiatal Hernia, Hx Ulcer Infectious Medical History: Denies: Hx Hepatitis Past Surgical History: Reports: Hx Appendectomy. Denies: Hx Hysterectomy, Hx Mastectomy, Hx Open Heart Surgery, Hx Pacemaker - Immunizations Hx Diphtheria, Pertussis, Tetanus Vaccination: No Physical Exam - Vital signs Vitals: Temp Pulse Resp BP Pulse Ox 98.4 F 91 18 107/77 99 09/07/19 17:43 09/07/19 17:43 09/07/19 17:43 09/07/19 17:43 09/07/19 17:43 Course - Vital Signs Vital signs: Temp Pulse Resp BP Pulse Ox 98.4 F 91 18 107/77 99 09/07/19 19:09 09/07/19 19:09 09/07/19 19:09 09/07/19 19:09 09/07/19 19:09 Doctor's Discharge - Discharge Referrals: JULIO GARRETT DO [Primary Care Provider] - Follow up as needed
[2019-09-07 19:53] LABS: ABSOLUTE EOSINOPHILS # (AUTO) 0.1 10^3/uL (0.0-0.6); ABSOLUTE LYMPHOCYTES (AUTO) 1.7 10^3/uL (0.5-4.7); ABSOLUTE MONOCYTES (AUTO) 0.5 10^3/uL (0.1-1.4); ABSOLUTE NEUT (AUTO) 4.4 10^3/uL (1.7-8.2); BASOPHILS % (AUTO) 0.2 % (0-2); EOSINOPHILS % (AUTO) 1.1 % (0-6); HEMATOCRIT 43.1 % (36.0-47.0); LYMPHOCYTES % (AUTO) 25.6 % (13-45); MEAN CORPUSCULAR HGB CONC 34.8 g/dL (32.0-36.0); MEAN CORPUSCULAR VOLUME 92 fl (80-97); MONOCYTES % (AUTO) 7.4 % (3-13); PLATELET COUNT 241 10^3/uL (150-450); RED BLOOD COUNT 4.69 10^6/uL (3.72-5.28); RED CELL DISTRIBUTION WIDTH 13.4 % (11.5-14.0); SEGMENTED NEUTROPHILS % (AUTO) 65.7 % (42-78); TOTAL CELLS COUNTED % (AUTO) 100 %; WHITE BLOOD COUNT 6.6 10^3/uL (4.0-10.5)
[2019-09-07 20:03] LABS: APPEARANCE,URINE CLOUDY; BILIRUBIN,URINE NEGATIVE (NEGATIVE); COLOR,URINE RED; GLUCOSE, URINE NEGATIVE (NEGATIVE); KETONES,URINE NEGATIVE (NEGATIVE); PROTEIN,URINE 100 mg/dL (NEGATIVE); URINE SPECIFIC GRAVITY 1.016; UROBILINOGEN,URINE NEGATIVE mg/dL (<2.0)
[2019-09-07 20:16] LABS: ALBUMIN 4.5 g/dL (3.5-5.0); ALKALINE PHOSPHATASE 36 U/L (38-126); ANION GAP 7 (5-19); ASPARTATE AMINO TRANSFERASE 21 U/L (14-36); BILIRUBIN,TOTAL 0.5 mg/dL (0.2-1.3); BLOOD UREA NITROGEN 11 mg/dL (7-20); CALCIUM 9.6 mg/dL (8.4-10.2); CARBON DIOXIDE 32 mmol/L (22-30); CHLORIDE 102 mmol/L (98-107); GLUCOSE 89 mg/dL (75-110); TOTAL PROTEIN 7.1 g/dL (6.3-8.2)
--- NOTE | 2019-09-07 20:50 | ER Document Report ---
ED General - General Chief Complaint: Abdominal Pain Stated Complaint: ABDOMINAL PAIN Time Seen by Provider: 09/07/19 19:03 Primary Care Provider: JULIO GARRETT DO [ASSOCIATE] - Follow up as needed Mode of Arrival: Ambulatory Information source: Patient TRAVEL OUTSIDE OF THE [place] IN LAST 30 DAYS: No - HPI Onset: This morning Onset/Duration: Sudden Quality of pain: Achy, Sharp Severity: Moderate Associated symptoms: Nausea Exacerbated by: Food Relieved by: Denies Similar symptoms previously: No Recently seen / treated by doctor: No Notes: 29-year-old female presents to the emergency department with the chief complaint of abdominal pain. Patient states that her pain is in the epigastric and right upper quadrant area. The pain started this morning. Patient has a history of an enlarged gallbladder in the past when she was but she has no history of gallstones. The patient has had some nausea but she denies fevers, chills, sweats, diarrhea, vomiting. The patient says she has been under a tremendous amount of stress in the last year. She takes Zoloft, PRN Klonopin, and PRN Adderall. - Related Data Allergies/Adverse Reactions: No Known Allergies Allergy (Verified 03/03/19 09:32) Past Medical History - Social History Smoking Status: Never Smoker Chew tobacco use (# tins/day): No Frequency of alcohol use: Occasional Drug Abuse: None Family History: Reviewed & Not Pertinent Patient has suicidal ideation: No Patient has homicidal ideation: No - Past Medical History Cardiac Medical History: Denies: Hx Heart Attack, Hx Hypertension - LOW BP Pulmonary Medical History: Denies: Hx Asthma Neurological Medical History: Reports: Other - patient says she has possible MS on imaging but she is on no treatment.. Denies: Hx Cerebrovascular Accident, Hx Seizures Renal/ Medical History: Denies: Hx Peritoneal Dialysis GI Medical History: Denies: Hx Hepatitis, Hx Hiatal Hernia, Hx Ulcer Infectious Medical History: Denies: Hx Hepatitis Past Surgical History: Reports: Hx Appendectomy. Denies: Hx Hysterectomy, Hx Mastectomy, Hx Open Heart Surgery, Hx Pacemaker - Immunizations Hx Diphtheria, Pertussis, Tetanus Vaccination: No Review of Systems - Review of Systems Constitutional: No symptoms reported EENT: No symptoms reported Cardiovascular: No symptoms reported Gastrointestinal: Abdominal pain, Nausea Genitourinary: No symptoms reported Female Genitourinary: No symptoms reported Musculoskeletal: No symptoms reported Skin: No symptoms reported Hematologic/Lymphatic: No symptoms reported Neurological/Psychological: No symptoms reported Physical Exam - Vital signs Vitals: Temp Pulse Resp BP Pulse Ox 98.4 F 91 18 107/77 99 09/07/19 17:43 09/07/19 17:43 09/07/19 17:43 09/07/19 17:43 09/07/19 17:43 - Notes Notes: GENERAL: Well-appearing, well-nourished and in no acute distress. HEAD: Atraumatic, normocephalic. EYES: Pupils equal round and reactive to light, extraocular movements intact, sclera anicteric, conjunctiva are normal. ENT: Nares patent, oropharynx clear without exudates. Moist mucous membranes. NECK: Normal range of motion, supple without lymphadenopathy or JVD. LUNGS: Breath sounds clear to auscultation bilaterally and equal. No wheezes rales or rhonchi. HEART: Regular rate and rhythm without murmurs, rubs or gallops. ABDOMEN: Soft, mild epigastric and RUQ tenderness, normoactive bowel sounds. No guarding, no rebound. No masses appreciated. EXTREMITIES: Normal range of motion, no pitting or edema. No clubbing or cyanosis. NEUROLOGICAL: Cranial nerves II through XII grossly intact. Normal speech, normal gait. PSYCH: Normal mood, normal affect. SKIN: Warm, Dry, normal turgor, no rashes or lesions noted. Course - Re-evaluation Re-evalutation: 09/07/19 21:44 The patient is here for epigastric and RUQ abdominal pains with some nausea. US shows a contracted gallbladder with no stones. Patient may haver GERD, an Ulcer, functional gallbladder pain, or anxiety. Patient is on her menstrual cycle but she tells me she does have some urinary frequency and mild pelvic pain/burning. Will therefore culture urine and treat with Bactrim since hard to tell on UA if infected or not. 09/07/19 21:49 - Vital Signs Vital signs: Temp Pulse Resp BP Pulse Ox 98.4 F 91 18 107/77 99 09/07/19 19:09 09/07/19 19:09 09/07/19 19:09 09/07/19 19:09 09/07/19 19:09 - Laboratory Result Diagrams: 09/07/19 19:38 09/07/19 19:38 Laboratory results interpreted by me: 09/07/19 09/07/19 19:30 19:38 Carbon Dioxide 32 H Alkaline Phosphatase 36 L Lipase 319.3 H Urine Protein 100 H Urine Blood LARGE H Leukocyte Esterase Rfl TRACE H Discharge - Discharge Clinical Impression: UTI (urinary tract infection) Qualifiers: Urinary tract infection type: acute cystitis Hematuria presence: without he maturia Qualified Code(s): N30.00 - Acute cystitis without hematuria Abdominal pain Qualifiers: Abdominal location: upper abdomen, unspecified Qualified Code(s): R10.10 - Upper abdominal pain, unspecified Condition: Stable Disposition: HOME, SELF-CARE Instructions: Abdominal Pain ([facility]), Urinary Tract Infection ([facility]) Additional Instructions: Take antibiotics as prescribed. Follow up with a primary care doctor and a GI Doctor if your abdominal pains persist. Try using an over the counter Proton Pump Inhibitor (PPI) such as protonix, prilosec, or another. Also use tylenol and motrin for pain. Prescriptions: Sulfamethoxazole/Trimethoprim [Bactrim Ds Tablet] 1 each PO BID 3 Days #6 tablet Referrals: JULIO GARRETT DO [ASSOCIATE] - Follow up as needed
--- NOTE | 2019-09-07 21:15 | RADIOLOGY REPORT (SQ) ---
US ABDOMEN LIMITED CLINICAL STATEMENT: epigastric pain; RUQ pain COMPARISON: None FINDINGS: Pancreas is within normal limits. No biliary dilatation with CBD measuring 3 mm. Gallbladder is contracted and does not demonstrate evidence for calculus, wall thickening or pericholecystic fluid. Aorta and IVC are within normal limits. Liver is within normal limits measuring 16.2 cm. Portal vein is patent with hepatopedal flow. Right kidney measures 11.6 cm. No right hydronephrosis. IMPRESSION: Contracted gallbladder. No evidence for cholelithiasis or cholecystitis.
[2019-09-07 22:03] VITALS: BP 102/41
== END 2019-09-07 22:03 | disposition home or self-care (01) ==
LOC: ER 17:35
DX: N30.00 Acute cystitis without hematuria (principal); K82.0 Obstruction of gallbladder; R10.13 Epigastric pain; R10.11 Right upper quadrant pain; R10.816 Epigastric abdominal tenderness; R10.811 Right upper quadrant abdominal tenderness; R35.0 Frequency of micturition; R10.2 Pelvic and perineal pain; R11.0 Nausea; Z79.899 Other long term (current) drug therapy; Z90.49 Acquired absence of other specified parts of digestive tract
CPT/HCPCS: 99284; 36415; 83690; 84703; 85025; 80053; 81001; 76705; J3490

== ENCOUNTER 2019-12-29 00:12 | Emergency (ER) | payer OTHER, MEDICAID ==
[2019-12-29] MEDS ORDERED: ONDANSETRON HCL INJ/PF 4 MG/2 ML SDV IV ONE (00:35)
[2019-12-29] MEDS ORDERED: KETOROLAC TROMETHAMINE INJ/PF 30 MG/1 ML SDV IV ONE (00:35)
[2019-12-29 01:23] LABS: ABSOLUTE EOSINOPHILS # (AUTO) 0.1 10^3/uL (0.0-0.6); ABSOLUTE LYMPHOCYTES (AUTO) 1.8 10^3/uL (0.5-4.7); ABSOLUTE MONOCYTES (AUTO) 0.5 10^3/uL (0.1-1.4); ABSOLUTE NEUT (AUTO) 3.6 10^3/uL (1.7-8.2); BASOPHILS % (AUTO) 0.2 % (0-2); EOSINOPHILS % (AUTO) 2.2 % (0-6); HEMATOCRIT 44.2 % (36.0-47.0); HEMOGLOBIN 15.6 g/dL (12.0-15.5); LYMPHOCYTES % (AUTO) 29.5 % (13-45); MEAN CORPUSCULAR HEMOGLOBIN 32.3 pg (27.0-33.4); MEAN CORPUSCULAR HGB CONC 35.2 g/dL (32.0-36.0); MEAN CORPUSCULAR VOLUME 92 fl (80-97); MONOCYTES % (AUTO) 8.7 % (3-13); PLATELET COUNT 248 10^3/uL (150-450); RED BLOOD COUNT 4.83 10^6/uL (3.72-5.28); RED CELL DISTRIBUTION WIDTH 13.5 % (11.5-14.0); SEGMENTED NEUTROPHILS % (AUTO) 59.4 % (42-78); TOTAL CELLS COUNTED % (AUTO) 100 %; WHITE BLOOD COUNT 6.1 10^3/uL (4.0-10.5)
[2019-12-29] MEDS ORDERED: NORMAL SALINE 1000 ML 1,000 ML IV ONE (01:23)
[2019-12-29] MEDS ORDERED: ACETAMINOPHEN 325 MG TABLET PO ONE (01:24)
--- NOTE | 2019-12-29 01:34 | ER Document Report ---
ED General - General Chief Complaint: Abdominal Pain Stated Complaint: ABDOMINAL PAIN Time Seen by Provider: 12/29/19 00:24 Primary Care Provider: GABBY AMBROSIO MD [Primary Care Provider] - Follow up as needed TRAVEL OUTSIDE OF THE [place] IN LAST 30 DAYS: No - HPI Notes: Patient is a 29-year-old female who presents emergency department for evaluation of left-sided pelvic pain. She states this is happened intermittently for some time. She is being treated for urinary tract infections, has had multiple antibiotics over the last 2 months. She had a recent pelvic exam which was unremarkable. She states that she has sudden onset sharp left pelvic pain, felt like either her endometriosis or an ovarian cyst, which she has had in the past as well. She states she is currently menstruating. She denies any vaginal discharge. She has had normal bowel movements. She has had some nausea but no emesis. - Related Data Allergies/Adverse Reactions: No Known Allergies Allergy (Verified 03/03/19 09:32) Home Medications: Zoloft, Adderall Past Medical History - General Information source: Patient - Social History Smoking Status: Never Smoker Family History: Reviewed & Not Pertinent Patient has suicidal ideation: No Patient has homicidal ideation: No - Past Medical History Cardiac Medical History: Denies: Hx Heart Attack, Hx Hypertension - LOW BP Pulmonary Medical History: Denies: Hx Asthma Neurological Medical History: Denies: Hx Cerebrovascular Accident, Hx Seizures Renal/ Medical History: Denies: Hx Peritoneal Dialysis GI Medical History: Denies: Hx Hepatitis, Hx Hiatal Hernia, Hx Ulcer Psychiatric Medical History: Reports: Hx Attention Deficit Hyperactivity Disorder, Hx Obsessive Compulsive Disorder Infectious Medical History: Denies: Hx Hepatitis Past Surgical History: Reports: Hx Appendectomy. Denies: Hx Hysterectomy, Hx Mastectomy, Hx Open Heart Surgery, Hx Pacemaker - Immunizations Hx Diphtheria, Pertussis, Tetanus Vaccination: No Review of Systems - Review of Systems Gastrointestinal: See HPI Female Genitourinary: See HPI -: Yes All other systems reviewed and negative Physical Exam - Vital signs Vitals: Temp Pulse Resp BP Pulse Ox 97.9 F 79 20 105/61 99 12/29/19 00:51 12/29/19 00:51 12/29/19 00:51 12/29/19 00:51 12/29/19 00:51 - Notes Notes: Vital signs reviewed, please refer to chart. Head is normocephalic, atraumatic. Pupils equal round, reactive to light. Neck is supple without meningismus. Heart is regular rate and rhythm. Lungs are clear to auscultation bilaterally. Abdomen is soft, moderately tender in the left pelvis without rebound or guarding, normoactive bowel sounds throughout. Extremities without cyanosis, clubbing. Posterior calves are nontender. Peripheral pulses are equal. Skin is warm and dry. Patient is awake, alert, neurological exam is nonfocal. Course - Re-evaluation Re-evalutation: 12/29/19 01:33 Patient presents emergency department for evaluation. Laboratory investigations were ordered. Initially ordered Zofran and Toradol. The patient states that she took ibuprofen shortly before signing in. I explained her that I still believe that it would be safe for her to have Toradol, but she declined. She also requested fluids. Patient is given a liter of normal saline, oral Tylenol. She is stable at this time, we will continue to monitor. 12/29/19 03:10 Patient feeling significantly improved. Laboratory investigations failed to reveal any significant abnormalities, with the exception of some mild hyperglycemia, and she had some juice. She states she has had frequent UTIs, urine was sent for culture. She will be contacted if this should become positive. Otherwise, she is encouraged to continue anti-inflammatories, follow- up with urogynecology, as she is already been referred. She is to return to the ED with worsening. - Vital Signs Vital signs: Temp Pulse Resp BP Pulse Ox 97.9 F 79 20 105/61 99 12/29/19 00:51 12/29/19 00:51 12/29/19 00:51 12/29/19 00:51 12/29/19 00:51 - Laboratory Result Diagrams: 12/29/19 01:02 12/29/19 01:02 Laboratory results interpreted by me: 12/29/19 12/29/19 12/29/19 01:02 01:02 02:35 Hgb 15.6 H Carbon Dioxide 35 H Glucose 66 L Ur Leukocyte Esterase TRACE H Urine Ascorbic Acid 40 H Discharge - Discharge Clinical Impression: Pelvic pain Condition: Stable Disposition: HOME, SELF-CARE Instructions: Pelvic Pain ([facility]) Additional Instructions: No clear cause was found for your pain today. Certainly it could be secondary to endometriosis. Continue anti-inflammatories at home. Your urine was sent for culture, if any bacteria grow you will be contacted. Otherwise, follow-up with primary care/urogynecology as soon as possible. Return to the emergency department for worsening or new concerning symptoms of any sort. Referrals: GABBY AMBROSIO MD [Primary Care Provider] - Follow up as needed
[2019-12-29 01:55] LABS: ALBUMIN 4.5 g/dL (3.5-5.0); ALKALINE PHOSPHATASE 44 U/L (38-126); ANION GAP 6 (5-19); ASPARTATE AMINO TRANSFERASE 18 U/L (14-36); BILIRUBIN,TOTAL 0.4 mg/dL (0.2-1.3); BLOOD UREA NITROGEN 12 mg/dL (7-20); CALCIUM 9.7 mg/dL (8.4-10.2); CARBON DIOXIDE 35 mmol/L (22-30); CHLORIDE 98 mmol/L (98-107); POTASSIUM 3.8 mmol/L (3.6-5.0); TOTAL PROTEIN 7.3 g/dL (6.3-8.2)
[2019-12-29 01:59] LABS: GLUCOSE 66 mg/dL (75-110)
--- NOTE | 2019-12-29 02:09 | RADIOLOGY REPORT (SQ) ---
Ultrasound pelvis transvaginal on 12/29/2019 1:33 AM CLINICAL INDICATION: Left pelvic pain, history of endometriosis COMPARISON: None FINDINGS: Multiple sonographic images are obtained throughout the pelvis by transvaginal approach, both transverse and sagittal images are obtained. Uterus measures approximately 7.4 x 4.0 x 5.9 cm. Endometrial stripe measures 4 mm which is within normal limits. Very small amount of fluid is noted in the endometrium. Right ovary measures approximately 2.3 x 4.1 x 3.1 cm. Flow is demonstrated in the right ovary. Left ovary measures approximately 2.1 x 4.7 x 2.3 cm. Flow is demonstrated in the left ovary. No adnexal mass or fluid collection is noted. No free fluid is noted. IMPRESSION: Essentially unremarkable exam.
[2019-12-29 02:50] LABS: APPEARANCE,URINE CLOUDY; BILIRUBIN,URINE NEGATIVE (NEGATIVE); COLOR,URINE YELLOW; GLUCOSE, URINE NEGATIVE (NEGATIVE); KETONES,URINE NEGATIVE (NEGATIVE); LEUKOCYTE ESTERASE,URINE TRACE (NEGATIVE); NITRITE,URINE NEGATIVE (NEGATIVE); PROTEIN,URINE NEGATIVE (NEGATIVE); URINE SPECIFIC GRAVITY 1.017; UROBILINOGEN,URINE NEGATIVE mg/dL (<2.0)
[2019-12-29 03:36] VITALS: BP 99/73
== END 2019-12-29 03:36 | disposition home or self-care (01) ==
LOC: ER 00:12
DX: R10.2 Pelvic and perineal pain (principal); R10.9 Unspecified abdominal pain; R11.0 Nausea
CPT/HCPCS: 99284; 96361; 96374; 36415; 87086; 84703; 85025; 80053; 81001; 76830; 93976; J2405; J7030

== ENCOUNTER → 2020-03-04 | Outpatient (CLI) | payer BC ==
--- NOTE | 2020-03-04 11:57 | ER RDC ASSESSMENT REPORT ---
Intake - In the Last 14 days Have you traveled outside [place]?: No Have you been in close contact with someone CONFIRMED: No Worked in Healthcare?: Yes - Symptoms Subjective Fever([place] feverish): Yes Chills: Yes Muscule Aches: Yes Runny Nose: Yes Sore Throat: Yes Cough (New or worsening chronic cough): Yes Shortness of breath: Yes Nausea or Vomiting: No Headache: Yes Abdominal Pain: No Diarrhea(3 or more loose stools in last 24 hours): No - Do you have any of the following Chronic lung disease: Asthma or emphysema or COPD: No Cystic Fibrosis: No Diabetes: No High Blood Pressure: No Cardiovascular Disease: No Chronic Kidney Disease: No Chronic Liver Disease: No Chronic blood disorder like Sickle Cell Disease: No Weak immune system due to disease or medication: No Neurologic condition that limits movement: No Developmental delay - Moderate to Severe: No Recent (within past 2 weeks) or current : No Morbid Obesity (>100 pounds over ideal weight): No - Objective Temperature: 99.2 F Pulse Rate: 81 Respiratory Rate: 20 Blood Pressure: 110/72 O2 Sat by Pulse Oximetry: 98 Objective: Given above, testing performed: If Testing Performed: Test Specimen Type Sent to General - General Information source: Patient Notes: Patient presents to the [facility] testing center for screening for the coronavirus. Patient does report fever, chills, body aches sore throat cough and shortness of breath. Patient has had a headache as well. Patient is currently being treated for a sinus infection and bronchitis with Tessalon Perles and a Z-Navjot. - Related Data Allergies/Adverse Reactions: No Known Allergies Allergy (Verified 03/03/19 09:32) Past Medical History - General Information source: Patient - Social History Smoking Status: Never Smoker Occupation: Healthcare Family History: Reviewed & Not Pertinent - Past Medical History Cardiac Medical History: Denies: Hx Heart Attack Pulmonary Medical History: Denies: Hx Asthma Neurological Medical History: Denies: Hx Cerebrovascular Accident, Hx Seizures Renal/ Medical History: Denies: Hx Peritoneal Dialysis GI Medical History: Denies: Hx Hepatitis, Hx Hiatal Hernia, Hx Ulcer Psychiatric Medical History: Reports: Hx Attention Deficit Hyperactivity Disorder, Hx Obsessive Compulsive Disorder Infectious Medical History: Denies: Hx Hepatitis Past Surgical History: Reports: Hx Appendectomy Physical Exam - General General appearance: Appears well, Alert In distress: None Notes: Full physical exam could not be performed due to covid 19 isolation protocols. Constitutional: Nontoxic appearance, no acute distress Eyes: Nonicteric, extraocular movements intact, sclera clear ENT: Clear rhinorrhea, swollen nasal mucosa Cardiovascular: Heart rate and rhythm regular, no JVD Respiratory: Occasional dry cough, mild rhonchi to left lower lobe nonlabored breathing, no use of accessory muscles, no tachypnea Gastrointestinal: Abdomen not distended Muculoskeletal: Moves all extremities well Skin: Normal color Neuro: Awake alert oriented, normal speech Psych: Normal mood and affect Diagnostic Results Laboratory Results: The patient was evaluated during the global Covid 19 pandemic, and that diagnosis was suspected/considered upon their initial presentation. Their evaluation, treatment and testing was consistent with current guidelines for patients who present with complaints or symptoms that may be related to Covid 19. Patient presents with upper respiratory symptoms worrisome for possible Covid 19. Patient does not have emergency worrying symptoms such as difficulty breathing, shortness of breath, chest pain, pressure, confusion or cyanosis. Patient appears suitable for discharge as they are not of an advanced age, do not have any chronic medical conditions such as diabetes, CAD, immune deficiency, chronic lung disease or chronic kidney disease. Patient's vital signs are stable and patient is nontoxic in appearance. Good return precautions have been discussed with patient, patient verbalized understanding and is agreeable with discharge plan of care at this time. Patient Education/Counseling Counseling/Education: Patient was provided with discharge information including: As a person under investigation for Covid 19, the [place] department of Health and Human Services, division of public health advises you to adhere to the following guidance until your test results are reported to you. If your test result is positive, you will receive additional information from your provider and your local health department at that time. Remain at home until you are cleared by the health provider or public health authorities. Keep a log of visitors to your home, notify any visitors to your home of your isolation status. If you plan to move to a new address or leave the county, notify the local health department in your County. Call your doctor or seek care if you have an urgent medical need. Before seeking medical care, call ahead to get instructions from the provider before arriving at the medical office clinic or hospital. Notify them that you are being tested for the virus that causes Covid 19 so that arrangements can be made, as necessary, to prevent transmission to others in the healthcare setting. Next, notify the local health department in your county. If a medical emergency arises and you need to call 911, inform the first responders that you are being tested for the virus that causes Covid 19. Next, notify the local health department in your county. RDC Discharge - Discharge Clinical Impression: Encounter for screening laboratory testing for COVID-19 virus Condition: Stable Disposition: Home; Selfcare
[2020-03-04 12:13] VITALS: BP 110/72
[2020-03-04 13:48] LABS: A TYPE INFLUENZA AG POSITIVE (NEGATIVE); B INFLUENZA AG NEGATIVE (NEGATIVE)
== END ==
LOC: RDC 11:09
PROVIDERS: ATTEND Nurse Practitioner Family
DX: Z20.828 Contact with and (suspected) exposure to other viral communicable diseases (principal); R50.9 Fever, unspecified; R05 Cough; R06.02 Shortness of breath; R09.89 Other specified symptoms and signs involving the circulatory and respiratory systems; J02.9 Acute pharyngitis, unspecified; M79.10 Myalgia, unspecified site; R51 Headache
CPT/HCPCS: 87635; 87804; 99211; C9803